=== PATIENT | male | born 2000 | race Caucasian/White ===

== ENCOUNTER 2022-05-10 19:52 | Emergency (ER) | payer BC ==
[~2022-05-10] VITALS: Ht 188 cm; Wt 93.2 kg
[2022-05-10 19:57] VITALS: BP 124/63; TEMP 98.3
[2022-05-10] MEDS ORDERED: NORCO 325 MG-51 TAB PO (21:44)
[2022-05-10 21:46] VITALS: PULSE 74
== END 2022-05-10 21:54 | disposition home or self-care (01) ==
LOC: COL.ER 19:52
DX: S39.012A Strain of muscle, fascia and tendon of lower back, initial encounter (principal); X50.0XXA Overexertion from strenuous movement or load, initial encounter; Z28.310 Unvaccinated for COVID-19
CPT/HCPCS: J2360